=== PATIENT | female | born 1950 | race Caucasian/White ===

== ENCOUNTER → 2016-10-03 | Day surgery (SDC) | payer OTHER ==
[~2016-10-03] MED LIST: ACETAMINOPHEN 1000 MG/100 ML 100 ML IV ONE; BACITRACIN TOP OINT 15 GM TUBE ONE; BALANCED SALT SOLN OPHT IRRIG 15 ML BTL ONE; LACTATED RINGER'S 1000 ML INJ 1,000 ML ONE; LIDOCAINE 1%/EPINEPHrine 1:200,000 PF SOLN 30 ML VIAL ONE; LIDOCAINE 2%/EPINEPHrine PF 1:200,000 20ML SDV ONE; MIDAZOLAM HCL 2 MG/2 ML VIAL ONE; NEOMYCIN/POLYMYXIN/HYDROCORT OTIC SUSP 10 ML BTL ONE; ONDANSETRON HCL 4 MG/2 ML VIAL IV PUSH ONE; PROPOFOL 200 MG/20 ML AMP IV ONE; ceFAZolin INJ 1,000 MG VIAL ONE
--- NOTE | 2016-10-03 10:46 | TN ---
cc: NGHIA VALDOVINOS M.D. DATE OF SURGERY 10/03/2016 PREOPERATIVE DIAGNOSIS Facial aging POSTOPERATIVE DIAGNOSIS Facial aging PROCEDURE Cervicofacial rhytidectomy SURGEON Nghia Valdovinos MD ANESTHESIA LMA general, local total of 100 cc mixed with 30 cc of 1% lidocaine with epinephrine. ESTIMATED BLOOD LOSS Minimal COMPLICATIONS None DRAINS None PROCEDURE She was properly consented, marked, properly anesthetized. The skin was sterilized with Microcyn and sterile draping applied. After proper draping of the skin, diluted lidocaine was infiltrated throughout the face and neck. Attention was directed to the submental area where a 3-1/2 to 4 cm incision in a supra-platysma plane was dissected down to the base of the neck and the neck incision was closed utilizing a running 4-0 Mersilene in multiple layers. Myotomies were done in the medial inferior bands on both sides in order to achieve better redraping. Through previous cervicofacial rhytidectomy incisions, this was properly re-utilized and the flap was elevated in the preauricular and the postauricular area communicating the dissection with the submental area. Plication of the SMAS was done utilizing 4-0 running Mersilene suture as well as lateral platysmaplasty. Dex tissue fibrin sealant glue was utilized to seal the space. The wounds were closed in the preauricular with 5-0 Monocryl suture and 5-0 fast-absorbing gut with minimal to no tension and so was posteriorly, we used 3-0 Monocryl suture and surgical angie. Absorbent compression dressing was applied thereafter. She was awakened and extubated in the operating room and transferred back to the postanesthesia care unit in stable condition. No complications were appreciated. The patient tolerated the procedure fairly well. MD LESLEE Harris/DENISE /10:06 AM /10:36 AM
== END | disposition home or self-care (01) ==
LOC: ESDC 06:21
PROVIDERS: ATTEND Plastic Surgery
DX: Z41.1 Encounter for cosmetic surgery (principal)
CPT/HCPCS: 00300; 15828; J0131; J0690; J2250; J2405; J3010; J7120